=== PATIENT | male | born 1945 | race Two or more races ===

== ENCOUNTER 2020-10-24 07:40 | Emergency (ER) | payer OTHER ==
[~2020-10-24] VITALS: Ht 170.2 cm; Wt 95.3 kg
[2020-10-24] MEDS ORDERED: PLAVIX75 MG (07:54)
[2020-10-24] MEDS ORDERED: LIPITOR20 MG (07:54)
[2020-10-24] MEDS ORDERED: BENICAR40 MG (07:55)
[2020-10-24] MEDS ORDERED: AZOR 5-40 MG T1 EACH (07:55)
== END 2020-10-24 12:46 | disposition home or self-care (01) ==
LOC: ER 07:40
DX: S01.82XA Laceration with foreign body of other part of head, initial encounter (principal); S01.22XA Laceration with foreign body of nose, initial encounter; W01.198A Fall on same level from slipping, tripping and stumbling with subsequent striking against other object, initial encounter; Y93.89 Activity, other specified; Y92.89 Other specified places as the place of occurrence of the external cause; Y99.8 Other external cause status

== ENCOUNTER 2024-04-15 10:45 | Inpatient (IN) | payer OTHER ==
[~2024-04-15] VITALS: Ht 231.1 cm; Wt 83.9 kg
[~2024-04-15 10:45] MED LIST: AZOR 5-40 MG T1 EACH; BENICAR40 MG; LIPITOR20 MG; PLAVIX75 MG
[2024-04-16] MEDS ORDERED: LASIX20 MG PO (10:43)
[2024-04-16] MEDS ORDERED: TOPROL XL25 M1 PO (10:45)
[2024-04-16] MEDS ORDERED: FOLIC ACID0.8 M1 (10:45)
[2024-04-16 10:48] VITALS: BP 122/81
[2024-04-16 14:24] LABS: HEMATOCRIT 31.1 % (39.0-48.0); HEMOGLOBIN 9.9 g/dL (13-16.00); MEAN CELL VOLUME 82.6 fL (80.0-100.00); MEAN CORPUSCULAR HEMOGLOBIN 26.3 pg (27.00-32.0); MEAN CORPUSCULAR HGB CONC 31.9 g/dl (32.0-36.0); PLATELET COUNT 247 K/uL (150-450); RED BLOOD COUNT 3.76 M/uL (4.00-6.00); RED CELL DISTRIBUTION WIDTH 17.6 % (11.5-14.5)
[2024-04-25] MEDS ORDERED: MORPHINE SULFATE 4 MG/ML CARTRIDGE IV PRN (18:45)
[2024-04-25] MEDS ORDERED: ONDANSETRON HCL 2 MG/ML VIAL IV PRN (18:45)
[2024-04-25] MEDS ORDERED: OxyCODONE HCL 5 MG TABLET (ROXICODONE) PO PRN (18:45)
[2024-04-25] MEDS ORDERED: 0.9 % SODIUM CHLORIDE 1,000 ML IV SCH (18:45)
[2024-04-25] MEDS ORDERED: DEXTROSE 50 % IN WATER 0.5 G/ML DISP.SYRIN IV PRN (18:45)
[2024-04-25] MEDS ORDERED: LIDOCAINE HCL 1%/EPINEPHRINE 20ML VIAL IJ ONE (19:30)
[2024-04-25] MEDS ORDERED: METRONIDAZOLE/SODIUM CHLORIDE 500 MG/100 ML PIGGYBACK IV ONE ×2 (19:30)
[2024-04-25] MEDS ORDERED: CEFTRIAXONE SODIUM 2,000 MG VIAL IV ONE (19:30)
[2024-04-25] MEDS ORDERED: BUPIVACAINE HCL/PF 0.25% 50 ML VIAL IJ ONE (19:30)
[2024-04-25] MEDS ORDERED: ACETAMINOPHEN 500 MG GEL..CAP PO SCH (20:00)
[2024-04-25] MEDS ORDERED: CELECOXIB 200 MG CAPSULE PO SCH (21:00)
[2024-04-25] MEDS ORDERED: FAMOTIDINE/PF 20 MG/2 ML VIAL IV PUSH SCH (21:00)
[2024-04-26 00:08] VITALS: BP 158/74; O2SAT 96
[2024-04-26 00:47] LABS: HEMATOCRIT 29.9 % (39.0-48.0); MEAN CELL VOLUME 81.1 fL (80.0-100.00); MEAN CORPUSCULAR HGB CONC 32.1 g/dl (32.0-36.0); PLATELET COUNT 220 K/uL (150-450); RED BLOOD COUNT 3.68 M/uL (4.00-6.00); RED CELL DISTRIBUTION WIDTH 17.6 % (11.5-14.5)
[2024-04-26 00:50] LABS: HEMOGLOBIN 9.6 g/dL (13-16.00)
[2024-04-26] MEDS ORDERED: GABAPENTIN 300 MG CAPSULE PO SCH (01:00)
[2024-04-26] MEDS ORDERED: METRONIDAZOLE/SODIUM CHLORIDE 500 MG/100 ML PIGGYBACK IV SCH (01:00)
[2024-04-26 01:12] LABS: ALBUMIN 2.7 gm/dL (3.4-5.0); CALCIUM 8.4 mg/dL (8.5-10.1); CREATININE SERUM 0.78 mg/dL (0.70-1.30); GFR 95.77; PHOSPHOROUS 3.2 mg/dL (2.5-4.9); POTASSIUM 4.18 mEq/L (3.5-5.1)
[2024-04-26 03:07] LABS: MAGNESIUM 1.3 mg/dL (1.8-2.4)
[2024-04-26 04:31] LABS: HEMATOCRIT 28.2 % (39.0-48.0); MEAN CELL VOLUME 80.9 fL (80.0-100.00); MEAN CORPUSCULAR HEMOGLOBIN 26.7 pg (27.00-32.0); PLATELET COUNT 195 K/uL (150-450); RED BLOOD COUNT 3.48 M/uL (4.00-6.00); RED CELL DISTRIBUTION WIDTH 17.9 % (11.5-14.5)
[2024-04-26 04:50] LABS: ALBUMIN 2.6 gm/dL (3.4-5.0); CALCIUM 8.1 mg/dL (8.5-10.1); CREATININE SERUM 0.79 mg/dL (0.70-1.30); GFR 94.37; POTASSIUM 4.14 mEq/L (3.5-5.1)
[2024-04-26 04:54] LABS: HEMOGLOBIN 9.3 g/dL (13-16.00)
[2024-04-26 04:55] LABS: MAGNESIUM 1.4 mg/dL (1.8-2.4)
[2024-04-26] MEDS ORDERED: HYOSCYAMINE SULFATE 0.125 MG TAB.SUBL SL SCH (09:00)
[2024-04-26 09:48] VITALS: BP 139/68; O2SAT 98
[2024-04-26] MEDS ORDERED: AMLODIPINE BESYLATE 2.5 MG TABLET PO NR (12:35)
[2024-04-26] MEDS ORDERED: METOPROLOL TARTRATE 25 MG TABLET PO NR (12:35)
[2024-04-26] MEDS ORDERED: SOD FERRIC GLUC COMPLX/SUCROSE 62.5 MG in 0.9 % SODIUM CHLORIDE 50 ML IV SCH (12:44)
[2024-04-26] MEDS ORDERED: MAGNESIUM SULFATE IN WATER 4 GM/100 ML PIGGYBACK IV NR (15:00)
[2024-04-26 16:22] VITALS: BP 122/68; O2SAT 95
[2024-04-26] MEDS ORDERED: ATORVASTATIN CALCIUM 20 MG TABLET PO SCH (17:00)
[2024-04-26] MEDS ORDERED: POLYETHYLENE GLYCOL 3350 17 GM BLIST.PACK PO SCH (17:00)
[2024-04-26] MEDS ORDERED: ENOXAPARIN SODIUM 40 MG/0.4 ML SYRINGE SUBCUTANEO SCH (17:00)
[2024-04-27 00:34] VITALS: BP 127/74; O2SAT 95
[2024-04-27 08:00] VITALS: BP 137/66; O2SAT 96
[2024-04-27] MEDS ORDERED: ENOXAPARIN SODIUM 40 MG/0.4 ML SYRINGE SUBCUTANEO SCH (09:00)
[2024-04-27] MEDS ORDERED: AMLODIPINE BESYLATE 2.5 MG TABLET PO SCH (09:00)
[2024-04-27] MEDS ORDERED: METOPROLOL TARTRATE 25 MG TABLET PO SCH (09:00)
[2024-04-27] MEDS ORDERED: PATIENTS OWN MEDICATION (MEDICAMENTO EN PISO) PO SCH (09:00)
[2024-04-27] MEDS ORDERED: LEVSIN/SL0.125 MG SL (13:31)
[2024-04-27] MEDS ORDERED: INTESTINEX680 M1 PO (13:31)
== END 2024-04-27 16:57 | disposition home or self-care (01) | DRG 330 ==
LOC: SURH 04-25 07:00 → O/R 04-25 10:43 → SURG 04-25 22:18
PROVIDERS: ADMIT Surgery; ATTEND Surgery
PROC: 0DBP4ZZ Excision of Rectum, Percutaneous Endoscopic Approach (ICD-10-PCS; 2024-04-25)
PROC: 07BC4ZZ Excision of Pelvis Lymphatic, Percutaneous Endoscopic Approach (ICD-10-PCS; 2024-04-25)
PROC: 0DTG4ZZ Resection of Left Large Intestine, Percutaneous Endoscopic Approach (ICD-10-PCS; 2024-04-25)
PROC: 0DJD8ZZ Inspection of Lower Intestinal Tract, Via Natural or Artificial Opening Endoscopic (ICD-10-PCS; 2024-04-25)
PROC: 0DTN4ZZ Resection of Sigmoid Colon, Percutaneous Endoscopic Approach (ICD-10-PCS; principal; 2024-04-25 07:00)
DX: C19 Malignant neoplasm of rectosigmoid junction (principal); C77.5 Secondary and unspecified malignant neoplasm of intrapelvic lymph nodes; R19.4 Change in bowel habit; D37.4 Neoplasm of uncertain behavior of colon; R59.0 Localized enlarged lymph nodes; D64.89 Other specified anemias; E78.5 Hyperlipidemia, unspecified; I10 Essential (primary) hypertension; Z20.822 Contact with and (suspected) exposure to COVID-19

== ENCOUNTER 2024-04-29 13:27 | Inpatient (IN) | payer OTHER ==
[~2024-04-29] VITALS: Ht 170.2 cm; Wt 0.5 kg
[~2024-04-29 13:27] MED LIST changes: +FOLIC ACID0.8 M1; +INTESTINEX680 M1 PO; +LASIX20 MG PO; +LEVSIN/SL0.125 MG SL; +TOPROL XL25 M1 PO
[2024-04-29] MEDS ORDERED: DICYCLOMINE HCL 20 MG TABLET PO ONE (16:45)
[2024-04-29] MEDS ORDERED: FAMOTIDINE/PF 20 MG/2 ML VIAL IV PUSH ONE (16:45)
[2024-04-29] MEDS ORDERED: SODIUM CHLORIDE 0.45 % 1,000 ML IV SCH (17:00)
[2024-04-29] MEDS ORDERED: FAMOTIDINE/PF 20 MG/2 ML VIAL IV SCH (17:01)
[2024-04-29 17:12] LABS: HEMATOCRIT 32.1 % (39.0-48.0); HEMOGLOBIN 10.3 g/dL (13-16.00); MEAN CORPUSCULAR HEMOGLOBIN 25.7 pg (27.00-32.0); MEAN CORPUSCULAR HGB CONC 32.1 g/dl (32.0-36.0); PLATELET COUNT 282 K/uL (150-450); RED BLOOD COUNT 4.01 M/uL (4.00-6.00); RED CELL DISTRIBUTION WIDTH 18.1 % (11.5-14.5)
[2024-04-29] MEDS ORDERED: ONDANSETRON HCL 4 MG in 0.9 % SODIUM CHLORIDE 50 ML IV PRN (17:15)
[2024-04-29] MEDS ORDERED: TRAMADOL HCL 50 MG TABLET PO PRN (17:15)
[2024-04-29 17:44] LABS: ALBUMIN 2.7 gm/dL (3.4-5.0); BILIRUBIN TOTAL 0.55 mg/dL (0.3-1.2); CALCIUM 9.1 mg/dL (8.5-10.1); CREATININE SERUM 1.04 mg/dL (0.70-1.30); GFR 68.71; GLOBULINA 4.3 G/DL (2.4-3.5); POTASSIUM 3.16 mEq/L (3.5-5.1)
[2024-04-30] VITALS: BP 135/78; O2SAT 98
[2024-04-30 04:45] VITALS: BP 154/74; O2SAT 96
[2024-04-30 06:49] LABS: HEMATOCRIT 29.7 % (39.0-48.0); HEMOGLOBIN 9.6 g/dL (13-16.00); MEAN CORPUSCULAR HEMOGLOBIN 26.3 pg (27.00-32.0); MEAN CORPUSCULAR HGB CONC 32.4 g/dl (32.0-36.0); PLATELET COUNT 258 K/uL (150-450); RED BLOOD COUNT 3.67 M/uL (4.00-6.00); RED CELL DISTRIBUTION WIDTH 17.4 % (11.5-14.5)
[2024-04-30] MEDS ORDERED: DIATRIZOATE MEGLUMINE, SODIUM 30 ML BOTTLE PO NR (07:30)
[2024-04-30 07:49] LABS: ALBUMIN 2.6 gm/dL (3.4-5.0); BILIRUBIN TOTAL 0.71 mg/dL (0.3-1.2); CREATININE SERUM 0.96 mg/dL (0.70-1.30); GFR 75.36; GLOBULINA 3.5 G/DL (2.4-3.5); POTASSIUM 3.62 mEq/L (3.5-5.1); TOTAL PROTEIN 6.1 gm/dL (6.4-8.2)
[2024-04-30 08:00] VITALS: BP 154/79; O2SAT 97
[2024-04-30 08:10] LABS: C-REACTIVE PROTEIN 2.52 MG/DL (0.00-0.29)
[2024-04-30] MEDS ORDERED: ENALAPRILAT DIHYDRATE 1.25 MG/ML VIAL IV PRN (15:15)
[2024-04-30 18:26] VITALS: BP 147/80; O2SAT 95
[2024-05-01] VITALS: BP 174/83; O2SAT 97
[2024-05-01] MEDS ORDERED: METOPROLOL SUCCINATE 25 MG TAB.SR.24H PO SCH (09:00)
[2024-05-01 10:04] VITALS: BP 174/83; O2SAT 98
[2024-05-01 10:26] VITALS: BP 150/75
[2024-05-01 16:00] VITALS: BP 129/75; O2SAT 95
[2024-05-02 00:22] VITALS: BP 148/70; O2SAT 97
[2024-05-02 08:00] VITALS: BP 128/61; O2SAT 95
[2024-05-02 16:00] VITALS: BP 141/66; O2SAT 97
== END 2024-05-02 17:06 | disposition home or self-care (01) | DRG 390 ==
LOC: ER 13:29 → SURH 18:38 → SEC-K 18:38 → SURH 22:53
PROVIDERS: General Practice; ADMIT Surgery; ATTEND Surgery
PROC: BW21YZZ Computerized Tomography (CT Scan) of Abdomen and Pelvis using Other Contrast (ICD-10-PCS; principal; 2024-04-30)
DX: K56.609 Unspecified intestinal obstruction, unspecified as to partial versus complete obstruction (principal); E86.0 Dehydration; K42.9 Umbilical hernia without obstruction or gangrene